=== PATIENT | male | born 1995 | race Caucasian/White ===

== ENCOUNTER 2023-12-28 21:08 | Emergency (ER) | payer SELFPAY ==
[2023-12-28 21:13] VITALS: BP 115/69; PULSE 83; O2SAT 95
[2023-12-28 21:29] VITALS: BP 103/57; PULSE 88; RESP 16; TEMP 36.6; O2SAT 96
[2023-12-28 21:31] VITALS: RESP 18; BMI 23.3
--- NOTE | 2023-12-28 21:50 | MHC.EDTECH ---
at this time the pt was changed over with security and his belongings was taken to [facility]
--- NOTE | 2023-12-28 21:52 | MHC.EDTECH ---
UPDATE TO PREVIOUS NOTE: security stated at this time that the pt belongings were brought to [facility]
--- NOTE | 2023-12-28 22:30 | ED.ALCOHOL ---
HPI - Alcohol General Chief Complaint: ETOH/Substance Use Stated Complaint: ETOH Time Seen by Provider: 12/28/23 22:30 Source: patient Mode of arrival: ambulatory Limitations: no limitations History of Present Illness ED Provider: nestor HERNANDEZ narrative: Patient's history of depression and alcohol abuse been drinking heavily lately with increased depression does have psychiatrist does not want to go to detox not explaining why he is drinking denies any suicidal ideation Related Data Allergies Allergy/AdvReac Type Severity Reaction Status Date / Time No Known Allergies Allergy Verified 12/28/23 21:35 Review of Systems Review of Systems: Yes all other systems are reviewed and are negative [facility] Social History Social History Alcohol intake: current Alcohol intake frequency: a few times a month Alcohol type: wine and hard liquor Smoked in Last 30 Days: No Use of substances other than those prescribed or required for medical reasons: Yes Substance Use Type: Marijuana Substance Use Frequency: Daily Advance Directives: No Advance Directives Information Provided: No Do you have a plan to hurt others: No Plan Physical Exam ED Vital Signs: Vital Signs - 24 hr 12/28/23 21:29 12/28/23 21:31 12/29/23 00:42 Temperature 97.9 F 97.1 F Pulse Rate 88 92 Respiratory Rate 16 18 16 Blood Pressure 103/57 L 118/60 Pulse Oximetry 96 97 Oxygen Delivery Method Room Air Room Air Room Air 12/29/23 03:36 12/29/23 06:00 Temperature 97.4 F 97.8 F Pulse Rate 70 89 Respiratory Rate 16 16 Blood Pressure 112/62 110/64 Pulse Oximetry 97 97 Oxygen Delivery Method Room Air Room Air BMI result Body Mass Index 23.3 Appearance: Alert. Oriented X3. Unkept Eyes: No pallor no icterus ENT: Pharynx normal. Oral Mucosa dry Neck: Normal inspection. Neck supple. CVS: Normal heart rate and rhythm. Pulses normal. Respiratory: No respiratory distress. Equal air entry bilateral, no wheezing/rales/rhonchi Abdomen: Soft and nontender. Bowel sounds are present, no mass palpable, no CVA tenderness Skin: Skin warm and dry. Normal skin color. Normal skin turgor. Extremities: No lower extremity edema. No calf tenderness Neuro: Oriented X 3. No motor deficit. No sensory deficit.No cerebellar signs , cranial nerves II-XII intact Medical Decision Making Medical Decision Making [facility] Narrative: Patient's depression alcohol use does not want to go to detox does not want any help does have therapist and psychiatrist likely follow up as outpatient Lab Data [facility] Lab Attestation statement: I reviewed the patient's lab results. 12/28/23 22:57 12/28/23 22:57 Labs: Lab Results 12/28/23 12/28/23 12/28/23 Range/Units 22:48 22:52 22:57 WBC 9.2 (4.8-10.8) X10*3/uL RBC 5.52 (4.60-5.80) X10*6/uL Hgb 15.7 (14.0-18.0) g/dl Hct 44.7 (42.0-52.0) % MCV 81.0 (80.0-98.0) fL MCH 28.4 (27.0-33.0) pg MCHC 35.1 (31.0-36.0) g/dl RDW 12.7 (11.0-16.0) % Plt Count 274 (160-400) X10*3/uL MPV 8.6 L (9.4-12.4) fL Immature Gran % (Auto) 0.2 (0.0-0.4) % Neut % (Auto) 82.3 H (45-73) % Lymph % (Auto) 13.6 L (20-40) % [place] % (Auto) 3.0 (2-11) % Eos % (Auto) 0.4 (0-4) % Baso % (Auto) 0.5 (0-2) % Lymph # (Auto) 1.3 (1.2-4.9) X10*3/uL [place] # (Auto) 0.3 (0.1-1.2) X10*3/uL Eos # (Auto) 0.0 (0.0-0.4) X10*3/uL Baso # (Auto) 0.1 (0.0-0.2) X10*3/uL Abs Immat Gran (auto) 0.02 (0.00-0.03) X10*3/uL Absolute Neuts (auto) 7.6 (2.0-8.3) x10*3/uL Absolute Nucleated RBC 0.000 (0.0-0.012) X10*3/uL Nucleated RBC % (auto) 0.0 (0.0-0.2) /100WBC Sodium 142 (135-145) mmol/L Potassium 4.2 (3.3-5.1) mmol/L Chloride 108 (96-108) mmol/L Carbon Dioxide 23 (22-29) mmol/L Anion Gap 15 (12-20) BUN 15 (9-16) mg/dL Creatinine 0.82 (0.5-1.4) mg/dL Estim Creat Clear Calc 125.3 Estimated GFR > 60 Random Glucose 96 (60-115) mg/dL Calcium 9.5 (8.4-10.2) mg/dL Magnesium 2.5 (1.6-2.6) mg/dL Total Bilirubin 0.3 (0.0-1.0) mg/dL AST 21 (5-37) U/L ALT 26 (0-40) U/L Alkaline Phosphatase 55 (39-117) U/L Total Protein 7.5 (6.5-8.0) g/dL Albumin 4.6 (3.5-5.0) g/dL Urine Color Yellow Urine Appearance Clear Urine pH 5.5 (5.0-9.0) Ur Specific [place] 1.020 (1.005-1.025) Urine Protein Negative (Neg-Trace) mg/dL Urine Glucose (UA) Negative (Negative) mg/dL Urine Ketones Trace (Negative) mg/dL Urine Blood Negative (Negative) Urine Nitrite Negative (Negative) Ur Leukocyte Esterase Negative (Negative) Urine Opiates Screen Not Detected (Not Detect) Ur Buprenorphine Scrn Not Detected (Not Detect) ng/mL Ur Oxycodone Screen Not Detected (Not Detect) ng/mL Urine Methadone Screen Not Detected (Not Detect) ng/mL Urine Fentanyl Screen Not Detected (Not Detect) Ur Barbiturates Screen Not Detected (Not Detect) Ur Phencyclidine Scrn Not Detected (Not Detect) Ur Amphetamines Screen Not Detected (Not Detect) U Benzodiazepines Scrn Not Detected (Not Detect) Urine Cocaine Screen Not Detected (Not Detect) U Marijuana (THC) Screen POSITIVE H (Not Detect) Ethyl Alcohol 202 mg/dL Medications Administered Discontinued Medications Generic Name Dose Route Start Last Admin Trade Name Freq PRN Reason Stop Dose Admin Sodium Chloride 1,000 mls @ 999 mls/hr 12/28/23 22:38 12/29/23 01:00 Ns IV 12/28/23 23:38 Infused .[id number] ONE Infusion Discharge Plan Discharge Clinical Impression: Alcoholic intoxication, Depression Patient Disposition: Home, Self-Care Instructions: Depression (ED), Alcohol Intoxication (ED), Abuse of Alcohol (ED) Additional Instructions: Do not drink alcohol Drink plenty of fluids Follow with detox Print Language: [place]
--- NOTE | 2023-12-28 22:58 | MHC.EDTECH ---
PHONE,WALLET, MEDICAL RESIDENT DROPPED OFF BY ROOMMATE. BELONGINGS PUT WITH THE REST OF THE PATIENTS ITEMS WITH SECURITY
[2023-12-28] MEDS: 0.9 % Sodium Chloride 1,000 ML 999 ML IV (23:01)
[2023-12-28 23:02] LABS: Appearance Urine Clear; Color Urine Yellow; Glucose Urine UA Negative (Negative); Leukocyte Esterase Urine Negative (Negative); Nitrite Urine Negative (Negative); PH 5.5 (5.0-9.0); Urine Blood Negative (Negative); Urine Ketones Trace mg/dL (Negative); Urine Protein Negative (Neg-Trace)
[2023-12-28 23:02] LABS: MANUAL DIFF FLAG NO
[2023-12-28 23:03] LABS: Basophils Absolute Auto 0.1 X10*3/uL (0.0-0.2); Basophils Percent Auto 0.5 % (0-2); Eosinophils Percent Auto 0.4 % (0-4); Hematocrit 44.7 % (42.0-52.0); Hemoglobin 15.7 g/dl (14.0-18.0); Imm Gran Abs Auto 0.02 X10*3/uL (0.00-0.03); Imm Gran Pct Auto 0.2 % (0.0-0.4); Lymphocytes Absolute Auto 1.3 X10*3/uL (1.2-4.9); Lymphocytes Percent Auto 13.6 % (20-40); Mean Corpuscular HGB Conc 35.1 g/dl (31.0-36.0); Mean Corpuscular Hemoglobin 28.4 pg (27.0-33.0); Mean Platelet Volume 8.6 fL (9.4-12.4); Monocytes Absolute Auto 0.3 X10*3/uL (0.1-1.2); Neutrophils Absolute Auto 7.6 x10*3/uL (2.0-8.3); Neutrophils Percent Auto 82.3 % (45-73); Platelet Count 274 X10*3/uL (160-400); Red Blood Count 5.52 X10*6/uL (4.60-5.80); Red Cell Distribution Width 12.7 % (11.0-16.0); White Blood Count 9.2 X10*3/uL (4.8-10.8)
[2023-12-28 23:11] LABS: Amphetamine Screen Urine Not Detected (Not Detect); Barbiturates, Urine Not Detected (Not Detect); Benzodiazepines Screen Urine Not Detected (Not Detect); Buprenorphine Scr Not Detected (Not Detect); Cannabinoid Screen Urine POSITIVE (Not Detect); Cocaine Screen Urine Not Detected (Not Detect); Fentanyl, urine Not Detected (Not Detect); Methadone Screen, Urine Not Detected (Not Detect); Opiate Screen Urine Not Detected (Not Detect); Oxycodone Screen Urine Not Detected (Not Detect); Phencyclidine Screen Urine Not Detected (Not Detect)
[2023-12-28 23:29] LABS: Ethanol 202 mg/dL
[2023-12-28 23:31] LABS: Alanine Aminotransferase 26 U/L (0-40); Albumin Level 4.6 g/dL (3.5-5.0); Alkaline Phosphatase 55 U/L (39-117); Anion Gap 15 (12-20); Aspartate Amino Transferase 21 U/L (5-37); Bilirubin Total 0.3 mg/dL (0.0-1.0); Blood Urea Nitrogen 15 mg/dL (9-16); Calcium 9.5 mg/dL (8.4-10.2); Carbon Dioxide 23 mmol/L (22-29); Chloride 108 mmol/L (96-108); Creatinine Clr Calc Pharmacy 125.3; Estimated Glomerular Filt Rate > 60; Glucose Random 96 mg/dL (60-115); Magnesium 2.5 mg/dL (1.6-2.6); Potassium 4.2 mmol/L (3.3-5.1); Sodium 142 mmol/L (135-145); Total Protein 7.5 g/dL (6.5-8.0)
--- NOTE | 2023-12-28 23:44 | PC.NURSE ---
this rn assumed care of pt, pt resting in stretcher, no acute distress noted.
[2023-12-29 00:42] VITALS: BP 118/60; PULSE 92; RESP 16; TEMP 36.2; O2SAT 97
--- NOTE | 2023-12-29 01:15 | PC.NURSE ---
pt awake to name at this time, pt denies any thoughts of SI/HI. dr. lomeli aware
[2023-12-29 03:36] VITALS: BP 112/62; PULSE 70; RESP 16; TEMP 36.3; O2SAT 97
--- NOTE | 2023-12-29 05:56 | PC.NURSE ---
this RN contacted pt primary contact for sober ride home, Alessia states she can pick pt up at 8am. pt aware.
[2023-12-29 06:00] VITALS: BP 110/64; PULSE 89; RESP 16; TEMP 36.6; O2SAT 97
[2023-12-29 08:18] VITALS: BP 125/78; PULSE 87; RESP 16; TEMP 36.6; O2SAT 95
== END 2023-12-29 08:45 | disposition home or self-care (01) ==
PROVIDERS: Emergency Provider Internal Medicine
DX: F10.120 Alcohol abuse with intoxication, uncomplicated (principal); F32.A Depression, unspecified; Y90.7 Blood alcohol level of 200-239 mg/100 ml; F12.90 Cannabis use, unspecified, uncomplicated
CPT/HCPCS: 36415; 80053; 80307; 81003; 83735; 85025; 96360; 96361; 99284; 99285